=== PATIENT | female | born 1970 | race Caucasian/White ===

== ENCOUNTER 2024-03-20 10:42 | Observation (INO) | payer BC ==
--- NOTE | 2024-03-20 12:08 | ED ---
General Adult HPI - General Chief complaint: Chest Pain Stated complaint: chest pain Time Seen by Provider: 03/20/24 11:47 Source: patient, EMS, RN notes reviewed, old records reviewed Mode of arrival: EMS Limitations: no limitations - History of Present Illness Initial comments: Patient is a 53-year-old female presenting to the emergency department with chest discomfort. Onset of symptoms was this morning. Patient has a ache in her chest. Discomfort is mild at this time. There is mild associated dyspnea and sweating. No nausea. Patient does have history of previous cardiac disease with a stent around 2 years ago. No calf pain or swelling. Patient was doing some increased exertion yesterday. - Related Data Home Medications Medication Instructions Recorded Confirmed Acetaminophen [Tylenol] 650 mg PO Q4H MDD 4 doses, 2,600 mg 03/20/24 03/20/24 Aspirin EC [Ecotrin Low Dose] 81 mg PO DAILY 03/20/24 03/20/24 Atorvastatin [Lipitor] 20 mg PO HS 03/20/24 03/20/24 Ergocalciferol (Vitamin D2) 1,250 mcg PO TU 03/20/24 03/20/24 [Drisdol (50,000 Iu)] Escitalopram [Lexapro] 20 mg PO DAILY 03/20/24 03/20/24 Ferrous Sulfate [Feosol] 325 mg PO AC-BRKFST 03/20/24 03/20/24 Ibuprofen [Motrin Ib] 600 mg PO Q6H PRN 03/20/24 03/20/24 Omeprazole 40 mg PO DAILY 03/20/24 03/20/24 lisinopriL [Zestril] 20 mg PO DAILY 03/20/24 03/20/24 traZODone HCL [Desyrel] 50 mg PO HS PRN 03/20/24 03/20/24 Allergies Allergy/AdvReac Type Severity Reaction Status Date / Time Penicillins Allergy hives Verified 03/20/24 11:37 macadamia nuts AdvReac Severe Uncoded 03/20/24 11:37 vomiting Review of Systems ROS Statement: Those systems with pertinent positive or pertinent negative responses have been documented in the HPI. ROS Other: All systems not noted in ROS Statement are negative. Constitutional: Denies: fever Eyes: Denies: eye pain ENT: Denies: ear pain Cardiovascular: Reports: as per HPI, chest pain Gastrointestinal: Denies: abdominal pain, vomiting Past Medical History Past Medical History: GERD/Reflux, Hyperlipidemia, Hypertension, Myocardial Infarction ([place]), Osteoarthritis ([place]) Past Surgical History: Cholecystectomy, Heart Catheterization With Stent, Orthopedic Surgery Past Psychological History: Anxiety, Depression Smoking Status: Current every day smoker, Vaper Past Alcohol Use History: Abuse Past Drug Use History: None Reported General Exam Limitations: no limitations General appearance: alert, in no apparent distress Head exam: Present: normocephalic Eye exam: Present: normal appearance Neck exam: Present: normal inspection Respiratory exam: Present: normal lung sounds bilaterally Cardiovascular Exam: Present: regular rate, normal rhythm, normal heart sounds Expanded Peripheral pulses: 2+: Radial (R), Radial (L), Posterior Tibialis (R), Posterior Tibialis (L) GI/Abdominal exam: Present: soft. Absent: tenderness Extremities exam: Present: normal inspection. Absent: calf tenderness Neurological exam: Present: alert Psychiatric exam: Present: normal affect, normal mood Skin exam: Present: normal color Course Vital Signs 03/20/24 03/20/24 10:44 13:41 Temperature 98.3 F 97.8 F Pulse Rate 96 79 Respiratory 18 18 Rate Blood Pressure 103/63 136/71 O2 Sat by Pulse 95 96 Oximetry EKG Findings - EKG Results: EKG: interpreted by ERMD (LVH criteria.), sinus rhythm, normal axis, normal ST/T Medical Decision Making - Medical Decision Making Was pt. sent in by a medical professional or institution (, PA, BAND TIER, urgent care, hospital, or prison...) When possible be specific @ -Patient sent from [facility] Did you speak to anyone other than the patient for history (EMS, parent, family, police, friend...)? What history was obtained from this source @ -No Did you review nursing and triage notes (agree or disagree)? Why? @ -I reviewed and agree with nursing and triage notes Were old charts reviewed (outside hosp., previous admission, EMS record, old EKG, old radiological studies, urgent care reports/EKG's, prison records)? Report findings @ -Reviewed paperwork from [facility] Differential Diagnosis (chest pain, altered mental status, abdominal pain women, abdominal pain men, vaginal bleeding, weakness, fever, dyspnea, syncope, headache, dizziness, GI bleed, back pain, seizure, CVA, palpatations, mental health, musculoskeletal)? @ -MDM differential chest MDM differential chest differential Chest Pain: Stable Angina, Unstable Angina, STEMI, NSTEMI Aortic Dissection, Pneumothorax, Musculoskeletal, Esophageal Spasm GERD, Cholecystitis, Pancreatitis, Zoster, this is not meant to be an all-inclusive list. EKG interpreted by me (3pts min.). @ -As above X-rays interpreted by me (1pt min.). @ -Chest x-ray shows no acute process CT interpreted by me (1pt min.). @ -None done U/S interpreted by me (1pt. min.). @ -None done What testing was considered but not performed or refused? (CT, X-rays, U/S, labs)? Why? @ -None What meds were considered but not given or refused? Why? @ -None Did you discuss the management of the patient with other professionals (professionals i.e. , PA, BAND TIER, lab, RT, psych nurse, social sciences instructor, foundry process engineer, teacher, hotel security officer, major case detective)? Give summary @ -Case discussed with Dr. Tobar who will admit covering hospital call Was smoking cessation discussed for >3mins.? @ -No Was critical care preformed (if so, how long)? @ -No Were there social determinants of health that impacted care today? How? (Homelessness, low income, unemployed, alcoholism, drug addiction, transportation, low edu. Level, literacy, decrease access to med. care, long term, rehab)? @ -No Was there de-escalation of care discussed even if they declined (Discuss DNR or withdrawal of care, Hospice)? DNR status @ -No What co-morbidities impacted this encounter? (DM, HTN, Smoking, COPD, CAD, Cancer, CVA, ARF, Chemo, Hep., AIDS, mental health diagnosis, sleep apnea, morbid obesity)? @ -Coronary artery disease Was patient admitted / discharged? Hospital course, mention meds given and route, prescriptions, significant lab abnormalities, going to OR and other pertinent info. @ -Patient presents with chest discomfort, mild at this time. Patient will be admitted with cardiac consult. Admission orders written Undiagnosed new problem with uncertain prognosis? @ -No Drug Therapy requiring intensive monitoring for toxicity (Heparin, Nitro, Insulin, Cardizem)? @ -No Were any procedures done? @ -No Diagnosis/symptom? @ -Chest pain Acute, or Chronic, or Acute on Chronic? @ -Acute Uncomplicated (without systemic symptoms) or Complicated (systemic symptoms)? @ -Default Side effects of treatment? @ -No Exacerbation, Progression, or Severe Exacerbation? @ -No Poses a threat to life or bodily function? How? (Chest pain, [place], [place], pneumonia, PE, COPD, DKA, ARF, appy, cholecystitis, CVA, Diverticulitis, Homicidal, Suicidal, threat to staff... and all critical care pts) @ -No - Lab Data Result diagrams: 03/20/24 13:23 03/20/24 13:23 Lab Results 03/20/24 03/20/24 03/20/24 Range/Units 13:23 13:23 13:23 WBC 9.8 (3.8-10.6) k/uL RBC 4.66 (3.80-5.40) m/uL Hgb 14.5 (11.4-16.0) gm/dL Hct 45.1 (34.0-46.0) % MCV 96.8 (80.0-100.0) fL MCH 31.2 (25.0-35.0) pg MCHC 32.2 (31.0-37.0) g/dL RDW 12.9 (11.5-15.5) % Plt Count 304 (150-450) k/uL MPV 7.6 Neutrophils % 72 % Lymphocytes % 20 % Monocytes % 4 % Eosinophils % 2 % Basophils % 1 % Neutrophils # 7.0 (1.3-7.7) k/uL Lymphocytes # 1.9 (1.0-4.8) k/uL Monocytes # 0.4 (0-1.0) k/uL Eosinophils # 0.2 (0-0.7) k/uL Basophils # 0.1 (0-0.2) k/uL PT 10.6 (10.0-12.5) sec INR 1.0 (<1.2) APTT 24.1 (22.0-30.0) sec D-Dimer 0.31 (<0.60) mg/L FEU Sodium 137 (137-145) mmol/L Potassium 3.3 L (3.5-5.1) mmol/L Chloride 103 (98-107) mmol/L Carbon Dioxide 24 (22-30) mmol/L Anion Gap 10 mmol/L BUN 23 H (7-17) mg/dL Creatinine 1.41 H (0.52-1.04) mg/dL Est GFR (CKD-EPI)AfAm 50 (>60 ml/min/1.73 sqM) Est GFR (CKD-EPI)NonAf 43 (>60 ml/min/1.73 sqM) Glucose 107 H (74-99) mg/dL Calcium 9.5 (8.4-10.2) mg/dL Magnesium 1.8 (1.6-2.3) mg/dL Total Bilirubin 0.6 (0.2-1.3) mg/dL AST 28 (14-36) U/L ALT 36 H (4-34) U/L Alkaline Phosphatase 105 (38-126) U/L Troponin I (0.000-0.034) ng/mL Total Protein 6.5 (6.3-8.2) g/dL Albumin 3.9 (3.5-5.0) g/dL 03/20/24 Range/Units 13:23 WBC (3.8-10.6) k/uL RBC (3.80-5.40) m/uL Hgb (11.4-16.0) gm/dL Hct (34.0-46.0) % MCV (80.0-100.0) fL MCH (25.0-35.0) pg MCHC (31.0-37.0) g/dL RDW (11.5-15.5) % Plt Count (150-450) k/uL MPV Neutrophils % % Lymphocytes % % Monocytes % % Eosinophils % % Basophils % % Neutrophils # (1.3-7.7) k/uL Lymphocytes # (1.0-4.8) k/uL Monocytes # (0-1.0) k/uL Eosinophils # (0-0.7) k/uL Basophils # (0-0.2) k/uL PT (10.0-12.5) sec INR (<1.2) APTT (22.0-30.0) sec D-Dimer (<0.60) mg/L FEU Sodium (137-145) mmol/L Potassium (3.5-5.1) mmol/L Chloride (98-107) mmol/L Carbon Dioxide (22-30) mmol/L Anion Gap mmol/L BUN (7-17) mg/dL Creatinine (0.52-1.04) mg/dL Est GFR (CKD-EPI)AfAm (>60 ml/min/1.73 sqM) Est GFR (CKD-EPI)NonAf (>60 ml/min/1.73 sqM) Glucose (74-99) mg/dL Calcium (8.4-10.2) mg/dL Magnesium (1.6-2.3) mg/dL Total Bilirubin (0.2-1.3) mg/dL AST (14-36) U/L ALT (4-34) U/L Alkaline Phosphatase (38-126) U/L Troponin I <0.012 (0.000-0.034) ng/mL Total Protein (6.3-8.2) g/dL Albumin (3.5-5.0) g/dL Disposition Clinical Impression: Chest pain Disposition: ADMITTED IP TO THIS HOSP Is patient prescribed a controlled substance at d/c from ED?: No Referrals: Nonstaff,Physician [Primary Care Provider] - 1-2 days Time of Disposition: 14:07
--- NOTE | 2024-03-20 13:00 | XR ---
EXAMINATION TYPE: XR chest 2V DATE OF EXAM: 03/20/2024 COMPARISON: NONE HISTORY: Chest pain. TECHNIQUE: Frontal and lateral views of the chest are obtained. FINDINGS: There is no focal air space opacity, pleural effusion, or pneumothorax seen. The cardiac silhouette size is within normal limits. The osseous structures are intact. IMPRESSION: No acute process.
[2024-03-20 13:30] LABS: Basophils # (A) 0.1 k/uL (0-0.2); Basophils % (A) 1 %; Eosinophils # (A) 0.2 k/uL (0-0.7); Eosinophils % (A) 2 %; HCT 45.1 % (34.0-46.0); HGB 14.5 gm/dL (11.4-16.0); Lymphocytes # (A) 1.9 k/uL (1.0-4.8); Lymphocytes % (A) 20 %; MCH 31.2 pg (25.0-35.0); MCHC 32.2 g/dL (31.0-37.0); MCV 96.8 fL (80.0-100.0); Mean Platelet Volume 7.6; Monocytes # (A) 0.4 k/uL (0-1.0); Monocytes % (A) 4 %; Neutrophils % (A) 72 %; Platelet Count 304 k/uL (150-450); RBC 4.66 m/uL (3.80-5.40); RDW 12.9 % (11.5-15.5); WBC 9.8 k/uL (3.8-10.6)
[2024-03-20 13:39] LABS: ALT 36 U/L (4-34); AST 28 U/L (14-36); African American GFR (CKD) 50 (>60 ml/min/1.73 sqM); Albumin 3.9 g/dL (3.5-5.0); Alkaline Phosphatase 105 U/L (38-126); Anion Gap 10 mmol/L; Blood Urea Nitrogen 23 mg/dL (7-17); Calcium 9.5 mg/dL (8.4-10.2); Carbon Dioxide 24 mmol/L (22-30); Chloride 103 mmol/L (98-107); Glucose 107 mg/dL (74-99); Magnesium 1.8 mg/dL (1.6-2.3); Non-African American GFR(CKD) 43 (>60 ml/min/1.73 sqM); Potassium 3.3 mmol/L (3.5-5.1); Sodium 137 mmol/L (137-145); Total Bilirubin 0.6 mg/dL (0.2-1.3); Total Protein 6.5 g/dL (6.3-8.2)
[2024-03-20 13:44] LABS: Partial Thromboplastin Time 24.1 sec (22.0-30.0); Prothrombin Time 10.6 sec (10.0-12.5)
[2024-03-20] MEDS: NITROGLYCERIN OINT 1 INCH/GM PACKET TOPICAL STA (13:46)
[2024-03-20] MEDS: ASPIRIN 81 MG PO STA (13:46)
[2024-03-20] MEDS ORDERED: NITROGLYCERIN SL TABS 0.4 MG TAB SUBLINGUAL PRN (14:07)
[2024-03-20] MEDS: POTASSIUM CHLORIDE ER 20 MEQ TAB.ER PO STA (16:12)
[2024-03-20] MEDS: ACETAMINOPHEN TAB 325 MG TAB PO SCH (16:12)
[2024-03-20] MEDS: NITROGLYCERIN OINT 1 INCH/GM PACKET TOPICAL SCH (18:33)
[2024-03-20] MEDS: ATORVASTATIN 20 MG TAB PO SCH (20:19)
[2024-03-20] MEDS: traZODone HCL 50 MG TAB PO PRN (20:32)
--- NOTE | 2024-03-20 22:52 | P.HPIM ---
History of Present Illness H&P Date: 03/20/24 Chief Complaint: Chest pain Patient is a 53-year-old female with a past medical history of coronary artery disease history of stent placement, history of NH, hypertension, hyperlipidemia, GERD, osteoarthritis, anxiety/depression, currently everyday smoker/vaping and alcohol abuse who is currently at [facility] presents to ER with complaints of chest discomfort. Patient states that she has been having cramping mid retrosternal pain started today morning associate with shortness of breath and nausea and and felt diaphoretic. Patient has history of coronary disease and stent placement 2 years ago. Otherwise denies any cough or sputum production. No recent illnesses. Symptoms improved by the time she came to ER. She was also placed on Nitropaste. Patie nt had increased exertion yesterday. Chest x-ray showed no acute process. EKG showed sinus rhythm with possible left ventricular hypertrophy. Laboratory data showed WBC 9.8 hemoglobin 14.5 and platelets 304, D-dimer 0.31, sodium 137 potassium 3.3 chloride 103 bicarb is 24 BUN 23 and creatinine 1.41 and blood sugar 107 and liver exam showed ALT 36 AST 28 and alk phos 105 total bili 0.6 and troponin x 2 negative. Review of Systems Constitutional: Patient denies any fever or chills . No generalized weakness or weight loss. Abdomen: Patient denied nausea vomiting and diarrhea and abdominal pain. Cardiovascular: Patient denies any chest pain or short of breath no p alpitations. Respiratory: patient denied any cough or sputum production. No shortness of breath Neurologic: Patient denied any numbness or tingling. no headache. Musculoskeletal: Patient denies any complaints of joint swelling or deformity. Skin: Negative Psychiatric: Negative Endocrine: No heat or cold intolerance. No recent weight gain. Genitourinary: No dysuria or hematuria. All other 14 point ROS negative except the above. Past Medical History Past Medical History: GERD/Reflux, Hyperlipidemia, Hypertension, Myocardial Infarction ([place]), Osteoarthritis ([place]) Past Surgical History: Cholecystectomy, Heart Catheterization With Stent, Orthopedic Surgery Past Psychological History: Anxiety, Depression Smoking Status: Current every day smoker, Vaper Past Alcohol Use History: Abuse Past Drug Use History: None Reported Medications and Allergies Home Medications Medication Instructions Recorded Confirmed Type Acetaminophen [Tylenol] 650 mg PO Q4H MDD 4 doses, 2,600 mg 03/20/24 03/20/24 History Aspirin EC [Ecotrin Low Dose] 81 mg PO DAILY 03/20/24 03/20/24 History Atorvastatin [Lipitor] 20 mg PO HS 03/20/24 03/20/24 History Ergocalciferol (Vitamin D2) 1,250 mcg PO TU 03/20/24 03/20/24 History [Drisdol (50,000 Iu)] Escitalopram [Lexapro] 20 mg PO DAILY 03/20/24 03/20/24 History Ferrous Sulfate [Feosol] 325 mg PO AC-BRKFST 03/20/24 03/20/24 History Ibuprofen [Motrin Ib] 600 mg PO Q6H PRN 03/20/24 03/20/24 History Omeprazole 40 mg PO DAILY 03/20/24 03/20/24 History lisinopriL [Zestril] 20 mg PO DAILY 03/20/24 03/20/24 History traZODone HCL [Desyrel] 50 mg PO HS PRN 03/20/24 03/20/24 History Allergies Allergy/AdvReac Type Severity Reaction Status Date / Time Penicillins Allergy hives Verified 03/20/24 11:37 macadamia nuts AdvReac Severe Uncoded 03/20/24 11:37 vomiting Physical Exam Vitals: Vital Signs Temp Pulse Resp BP Pulse Ox 03/20/24 20:34 97.5 F L 69 16 118/60 93 L 03/20/24 13:41 97.8 F 79 18 136/71 96 03/20/24 10:44 98.3 F 96 18 103/63 95 Intake and Output 03/20/24 03/20/24 03/20/24 06:59 14:59 22:59 Other: Weight 166.468 kg PHYSICAL EXAMINATION: Patient is lying in the bed comfortably, no acute distress, awake alert and oriented. Morbidly obese. HEENT: Normocephalic. Neck is supple. Pupils reactive. Nostrils clear. Oral cavity is moist. Neck reveals no JVD, carotid bruits, or thyromegaly. CHEST EXAMINATION: Trachea is central. Symmetrical expansion. Lung cooney clear to auscultation and percussion. CARDIAC: Normal S1, S2 with no gallops. No murmurs ABDOMEN: Soft. Bowel sounds normal. No organomegaly. No abdominal bruits. Extremities: reveal no edema. No clubbing or cyanosis Neurologically awake, alert, oriented x3 with well-coordinated movements. No focal deficits noted Skin: No rash or skin lesions. Psychiatric: Coperative. Nonsuicidal Musculoskeletal: No joint swelling or deformity. Normal range of motion. Results CBC & Chem 7: 03/20/24 13:23 03/20/24 13:23 Labs: Abnormal Lab Results - Last 24 Hours (Table) 03/20/24 Range/Units 13:23 Potassium 3.3 L (3.5-5.1) mmol/L BUN 23 H (7-17) mg/dL Creatinine 1.41 H (0.52-1.04) mg/dL Glucose 107 H (74-99) mg/dL ALT 36 H (4-34) U/L Thrombosis Risk Factor Assmnt - DVT/VTE Prophylaxis DVT/VTE Prophylaxis: Pharmacologic Prophylaxis ordered Assessment and Plan Assessment: Atypical chest pain. Rule out ACS Coronary disease history of stent placement 2 years ago Severe alcohol abuse currently at [facility]. Hypokalemia Acute kidney injury likely prerenal with creatinine 1.4 on admission. Baseline creatinine not known Hyperlipidemia Hypertension History of NH Osteoarthritis GERD Anxiety/depression Currently everyday smoker/vaping DVT prophylax with heparin subcu Morbid obesity BMI 59.2 GI prophylaxis with PPI Plan: Patient will be continued on telemonitoring. Serial EKG and troponin x 3. Patient was placed on Nitropaste in the ER. Continue home blood pressure medications including PPI Monitor for alcohol withdrawal symptoms. Cardiology was consulted for evaluation due to prior history of CAD. Follow-up closely. Time with Patient: Greater than 30
[2024-03-21 00:12] VITALS: BP 130/81; RESP 15
[2024-03-21] MEDS: HEPARIN SODIUM,PORCINE 5,000 UNIT/ML 1 ML VIAL SQ SCH (00:30)
[2024-03-21] MEDS: SODIUM CHLORIDE 0.9% 1,000 ML IV SCH (00:30)
[2024-03-21] MEDS: PANTOPRAZOLE 40 MG TABLET PO SCH (06:33)
[2024-03-21] MEDS: FERROUS SULFATE 325 MG TAB PO SCH (06:33)
[2024-03-21 07:34] VITALS: PULSE 87; TEMP 97.7
[2024-03-21] MEDS ORDERED: NICOTINE 21MG/24HR PATCH TRANSDERM SCH (09:00)
[2024-03-21 09:09] LABS: BUN/Creat Ratio 17.67 Ratio (12.00-20.00); Blood Urea Nitrogen 15.9 mg/dL (9.0-27.0); Calcium 9.2 mg/dL (8.7-10.3); Carbon Dioxide 22.7 mmol/L (21.6-31.8); Chloride 105 mmol/L (96-109); Chol/HDL Ratio 3.74 Ratio; Glucose 112 mg/dL (70-110); LDL Cholesterol,Calculated 85.7 mg/dL (0.0-131.0); Potassium 3.3 mmol/L (3.5-5.5); Sodium 142 mmol/L (135-145); VLDL Calculation 19.08 mg/dL (5.00-40.00)
[2024-03-21] MEDS: ASPIRIN 325 MG TAB PO SCH (09:57)
[2024-03-21] MEDS: lisinopriL 20 MG TAB PO SCH (09:57)
[2024-03-21] MEDS: ESCITALOPRAM 20 MG TAB PO SCH (12:07)
[2024-03-21] MEDS: POTASSIUM CHLORIDE ER 20 MEQ TAB.ER PO STA (12:07)
--- NOTE | 2024-03-21 16:04 | CA ---
Transthoracic Echo Report Name: Adeola Messer Age: 53 Gender: F : 1970 Exam Date: 03/21/2024 09:19 Exam Location: [facility] Ht (in): 66 Wt (lb): 367 Ordering Physician: Ceasar Albright MD ([id number]) Attending/Referring Phys: Trapper Bird Alva Saeed RDCS Procedure CPT: Indications: Chest Pain Cardiac Hx: Technical Quality: Technically difficult study Contrast 1: Total Dose (mL): Contrast 2: Total Dose (mL): MEASUREMENTS (Male / Female) Normal Values 2D ECHO LV Diastolic Diameter PLAX 4.8 cm 4.2 - 5.9 / 3.9 - 5.3 cm LV Systolic Diameter PLAX 2.5 cm IVS Diastolic Thickness 1.3 cm 0.6 - 1.0 / 0.6 - 0.9 cm LVPW Diastolic Thickness 1.0 cm 0.6 - 1.0 / 0.6 - 0.9 cm LV Relative Wall Thickness 0.5 LA Volume 45.4 cm??? 18 - 58 / 22 - 52 cm??? LA Volume Index 15.7 cm???/m??? 16 - 28 cm???/m??? M-MODE Aortic Root Diameter MM 3.0 cm LA Systolic Diameter MM 4.3 cm LA Ao Ratio MM 1.4 DOPPLER AV Peak Velocity 160.1 cm/s AV Peak Gradient 10.3 mmHg AV Mean Gradient 5.8 mmHg AV Velocity Time Integral 29.8 cm LVOT Peak Velocity 61.7 cm/s LVOT Peak Gradient 1.5 mmHg LVOT Velocity Time Integral 24.1 cm Mitral E Point Velocity 60.6 cm/s Mitral A Point Velocity 69.2 cm/s Mitral E to A Ratio 0.9 MV Deceleration Time 380.3 ms TR Peak Velocity 148.8 cm/s TR Peak Gradient 8.9 mmHg FINDINGS Left Ventricle Mildly increased left ventricular wall thickness. Left ventricular cavity size normal. Normal left ventricular systolic function with no obvious regional wall motion abnormalities. Left ventricular ejection fraction is estimated at 55-60 %. Right Ventricle Normal right ventricular size and function. Right ventricular systolic pressure within normal limits. Right Atrium Normal right atrial size. Left Atrium Normal left atrial size. Mitral Valve Structurally normal mitral valve. No mitral stenosis. Mild mitral regurgitation. Aortic Valve Trileaflet aortic valve. No aortic valve stenosis or regurgitation. Tricuspid Valve Structurally normal tricuspid valve. Mild tricuspid regurgitation. Pulmonic Valve Structurally normal pulmonic valve. Trace pulmonic regurgitation. Pericardium No pericardial effusion. Aorta Normal size aortic root and proximal ascending aorta. CONCLUSIONS LVH with preserved systolic function Previewed by: Dr. Ceasar Albright MD (Electronically Signed) Final Date: 21 March 2024 16:03
--- NOTE | 2024-03-22 10:52 | P.CRDCN ---
History of Present Illness History of present illness: This is Dr. Albright dictating a consult on this patient The patient was interviewed and examined IMPRESSION / ASSESSMENT: Atypical symptoms of cramping in the chest and palpitations, very different from when she had a heart attack and stent Hypertension Increased BMI Past history of alcohol use Current smoker Prediabetes History of [place] in the past status post stenting at [facility] in the past PLAN: Hemoglobin A1c, lipid panel Continue cardiac medications. Patient is on appropriate medical treatment which she is taking regularly. Her blood pressure is well-controlled Continue atorvastatin continue MIKAYLA inhibitors continue baby aspirin 2D echo and Doppler study HPI Patient is complaining of flip-flopping and palpitations. She also complains of a vague cramping in the chest that she has never experienced before She has had a heart attack and coronary stenting in the past and the symptoms are completely different She is pain-free at this time resting comfortably in bed no orthopnea No dizziness no lightheadedness ROS: No fever chills or rigors, no cough, phlegm or expectoration, no nausea, vomiting or diarrhea, no hematuria, dysuria, no musculoskeletal complaints, no strokes or seizures, no skin lesions. EXAMINATION: Blood pressure is normal Heart sounds S1-S2 normal Breath sounds are clear REVIEW OF LABS, ECG & MEDICAL DATA 2 serial EKGs are normal Cardiac enzymes are normal x 3 Creatinine mildly elevated Electrolytes normal Past Medical History Past Medical History: GERD/Reflux, Hyperlipidemia, Hypertension, Myocardial Infarction ([place]), Osteoarthritis ([place]) Additional Past Medical History / Comment(s): [place] 2020 Last Myocardial Infarction Date:: 2020 History of Any Multi-Drug Resistant Organisms: None Reported Past Surgical History: Cholecystectomy, Heart Catheterization With Stent, Orthopedic Surgery Date of Last Stent Placement:: 2020 Past Psychological History: Anxiety, Depression Smoking Status: Current every day smoker, Vaper Past Alcohol Use History: Abuse Past Drug Use History: None Reported Medications and Allergies Home Medications Medication Instructions Recorded Confirmed Type Acetaminophen [Tylenol] 650 mg PO Q4H MDD 4 doses, 2,600 mg 03/20/24 03/20/24 History Aspirin EC [Ecotrin Low Dose] 81 mg PO DAILY 03/20/24 03/20/24 History Atorvastatin [Lipitor] 20 mg PO HS 03/20/24 03/20/24 History Ergocalciferol (Vitamin D2) 1,250 mcg PO TU 03/20/24 03/20/24 History [Drisdol (50,000 Iu)] Escitalopram [Lexapro] 20 mg PO DAILY 03/20/24 03/20/24 History Ferrous Sulfate [Feosol] 325 mg PO AC-BRKFST 03/20/24 03/20/24 History Ibuprofen [Motrin Ib] 600 mg PO Q6H PRN 03/20/24 03/20/24 History Omeprazole 40 mg PO DAILY 03/20/24 03/20/24 History lisinopriL [Zestril] 20 mg PO DAILY 03/20/24 03/20/24 History traZODone HCL [Desyrel] 50 mg PO HS PRN 03/20/24 03/20/24 History Allergies Allergy/AdvReac Type Severity Reaction Status Date / Time Penicillins Allergy hives Verified 03/20/24 11:37 macadamia nuts AdvReac Severe Uncoded 03/20/24 11:37 vomiting Physical Exam Vitals: Vital Signs Temp Pulse Pulse Resp BP BP Pulse Ox 03/21/24 07:00 97.7 F 87 94 L 03/21/24 00:31 85 03/21/24 00:08 97.4 F L 85 15 130/81 95 03/20/24 20:34 97.5 F L 69 16 118/60 93 L 03/20/24 13:41 97.8 F 79 18 136/71 96 03/20/24 10:44 98.3 F 96 18 103/63 95 Intake and Output 03/20/24 03/21/24 03/21/24 22:59 06:59 14:59 Other: # Voids 2 2 Weight 166.468 kg Results 03/20/24 13:23 03/20/24 13:23 Cardiac Enzymes 03/20/24 03/20/24 03/20/24 Range/Units 13:23 13:23 16:02 AST 28 (14-36) U/L Troponin I <0.012 <0.012 (0.000-0.034) ng/mL 03/20/24 Range/Units 19:28 AST (14-36) U/L Troponin I <0.012 (0.000-0.034) ng/mL Coagulation 03/20/24 Range/Units 13:23 PT 10.6 (10.0-12.5) sec APTT 24.1 (22.0-30.0) sec CBC 03/20/24 Range/Units 13:23 WBC 9.8 (3.8-10.6) k/uL RBC 4.66 (3.80-5.40) m/uL Hgb 14.5 (11.4-16.0) gm/dL Hct 45.1 (34.0-46.0) % Plt Count 304 (150-450) k/uL Comprehensive Metabolic Panel 03/20/24 Range/Units 13:23 Sodium 137 (137-145) mmol/L Potassium 3.3 L (3.5-5.1) mmol/L Chloride 103 (98-107) mmol/L Carbon Dioxide 24 (22-30) mmol/L BUN 23 H (7-17) mg/dL Creatinine 1.41 H (0.52-1.04) mg/dL Glucose 107 H (74-99) mg/dL Calcium 9.5 (8.4-10.2) mg/dL AST 28 (14-36) U/L ALT 36 H (4-34) U/L Alkaline Phosphatase 105 (38-126) U/L Total Protein 6.5 (6.3-8.2) g/dL Albumin 3.9 (3.5-5.0) g/dL Current Medications Generic Name Dose Route Start Last Admin Trade Name Freq PRN Reason Stop Dose Admin Acetaminophen 650 mg 03/20/24 16:00 03/21/24 06:33 Acetaminophen Tab 325 Mg Tab PO 650 mg Q4HR ABHAY Administration Aspirin 325 mg 03/21/24 09:00 Aspirin 325 Mg Tab PO DAILY [facility] Atorvastatin Calcium 20 mg 03/20/24 21:00 03/20/24 20:19 Atorvastatin 20 Mg Tab PO 20 mg HS [facility] Administration Ergocalciferol 1,250 mcg 03/26/24 09:00 Ergocalciferol 1,250 Mcg (50,000 Iu) Capsule PO [facility] Escitalopram Oxalate 20 mg 03/21/24 09:00 Escitalopram 20 Mg Tab PO DAILY [facility] Ferrous Sulfate 325 mg 03/21/24 07:30 03/21/24 06:33 Ferrous Sulfate 325 Mg Tab PO 325 mg AC-BRKFST [facility] Administration Heparin Sodium (Porcine) 5,000 unit 03/21/24 00:00 03/21/24 00:30 Heparin Sodium,Porcine 5,000 Unit/Ml 1 Ml Vial SQ 5,000 unit Q8HR ABHAY Administration Lisinopril 20 mg 03/21/24 09:00 Lisinopril 20 Mg Tab PO DAILY ABHAY Nicotine 1 patch 03/21/24 09:00 Nicotine 21mg/24hr Patch TRANSDERM DAILY ABHAY Nitroglycerin 0.4 mg 03/20/24 14:07 Nitroglycerin Sl Tabs 0.4 Mg Tab SUBLINGUAL Q5M PRN Chest Pain Pantoprazole Sodium 40 mg 03/21/24 07:30 03/21/24 06:33 Pantoprazole 40 Mg Tablet PO 40 mg AC-BRKFST ABHAY Administration Trazodone HCl 50 mg 03/20/24 14:03 03/20/24 20:32 Trazodone Hcl 50 Mg Tab PO 50 mg HS PRN Administration sleep Intake and Output 03/20/24 03/21/24 03/21/24 22:59 06:59 14:59 Other: # Voids 2 2 Weight 166.468 kg 03/20/24 13:23 03/20/24 13:23
[2024-03-26] MEDS ORDERED: ERGOCALCIFEROL 1,250 MCG (50,000 IU) CAPSULE PO SCH (09:00)
== END 2024-03-21 15:17 | disposition home or self-care (01) ==
LOC: EC 10:42 → 6NMEDSUR 14:08
PROVIDERS: ADMIT Internal Medicine; ATTEND Internal Medicine
DX: R07.89 Other chest pain (principal); I25.10 Atherosclerotic heart disease of native coronary artery without angina pectoris; E87.6 Hypokalemia; N17.9 Acute kidney failure, unspecified; K21.9 Gastro-esophageal reflux disease without esophagitis; E78.5 Hyperlipidemia, unspecified; I10 Essential (primary) hypertension; F32.A Depression, unspecified; F41.9 Anxiety disorder, unspecified; R73.03 Prediabetes; I25.2 Old myocardial infarction; F10.10 Alcohol abuse, uncomplicated; F17.290 Nicotine dependence, other tobacco product, uncomplicated; M19.90 Unspecified osteoarthritis, unspecified site; E66.01 Morbid (severe) obesity due to excess calories; Z68.43 Body mass index [BMI] 50.0-59.9, adult; Z95.5 Presence of coronary angioplasty implant and graft; Z79.82 Long term (current) use of aspirin; Z79.899 Other long term (current) drug therapy; Z88.0 Allergy status to penicillin
CPT/HCPCS: 96372; 99285; 36415; 93005; 93306; 85379; 80061; 80053; 80048; 84443; 83735; 84484; 85025; 85610; 85730; 83036; 71046; G0378 ×2; J1644

== ENCOUNTER 2024-05-16 20:55 | Inpatient (IN) | payer BC, OTHER ==
[~2024-05-16 20:55] MED LIST: MAGNESIUM SULFATE-D5W PMX 100 ML IVPB ONE; POTASSIUM CHLORIDE ER 20 MEQ TAB.ER PO ONE; SODIUM CHLORIDE 0.9% 1,000 ML BAG ONE
[2024-05-16] MEDS ORDERED: MAGNESIUM SULFATE-D5W PMX 100 ML IVPB ONE (21:12)
[2024-05-17] MEDS ORDERED: ONDANSETRON 4 MG/2 ML VIAL ONE (03:23)
[2024-05-17] MEDS ORDERED: LORazepam 2 MG/ML INJ ONE ×3 (03:34→23:39)
[2024-05-17] MEDS ORDERED: PANTOPRAZOLE 40 MG TABLET PO ONE ×2 (07:52→20:58)
[2024-05-17] MEDS ORDERED: THIAMINE 100 MG TAB ONE (07:52)
[2024-05-17] MEDS ORDERED: PANTOPRAZOLE 40 MG/10 ML VIAL ONE (20:25)
[2024-05-17] MEDS ORDERED: ATORVASTATIN 40 MG TAB ONE (20:25)
[2024-05-17] MEDS ORDERED: ATORVASTATIN 20 MG TAB ONE (20:26)
[2024-05-17] MEDS ORDERED: SODIUM CHLORIDE 0.9% 1,000 ML BAG ONE (23:59)
[2024-05-18] MEDS ORDERED: ACETAMINOPHEN TAB 325 MG TAB ONE (06:33)
[2024-05-18] MEDS ORDERED: PANTOPRAZOLE 40 MG TABLET PO ONE (08:51)
[2024-05-18] MEDS ORDERED: ASPIRIN 81 MG ONE (08:51)
[2024-05-18] MEDS ORDERED: FERROUS SULFATE 325 MG TAB PO ONE (08:51)
[2024-05-18] MEDS ORDERED: THIAMINE 100 MG TAB ONE (08:51)
[2024-05-18] MEDS ORDERED: SODIUM CHLORIDE 0.9% 1,000 ML BAG ONE (13:00)
[2024-05-18] MEDS ORDERED: ESCITALOPRAM 20 MG TAB ONE (13:00)
== END 2024-05-18 13:07 | disposition home or self-care (01) | DRG 897 ==
LOC: UNDODISIN 20:55 → 5NMEDONC 20:55
PROVIDERS: ADMIT Internal Medicine; ATTEND Internal Medicine
DX: F10.239 Alcohol dependence with withdrawal, unspecified (principal); N17.9 Acute kidney failure, unspecified; K92.2 Gastrointestinal hemorrhage, unspecified; F32.A Depression, unspecified; E66.9 Obesity, unspecified; Z88.0 Allergy status to penicillin; Z91.018 Allergy to other foods; Z79.899 Other long term (current) drug therapy
CPT/HCPCS: 93005; 96360; 96361; 99285